=== PATIENT | male | born 1980 | race Caucasian/White ===

== ENCOUNTER 2024-04-19 17:22 | Observation (INO) | payer MEDICAID, SELFPAY ==
[2024-04-19 17:22] VITALS: BP 109/63; PULSE 64; RESP 16; TEMP 36.2; O2SAT 100; BMI 18.3
[2024-04-19 19:22] VITALS: BP 96/60; PULSE 56; RESP 10; O2SAT 96
--- NOTE | 2024-04-19 19:51 | EX.ED.DYSGE1 ---
HPI History of Present Illness Chief Complaint: Substance Abuse PFSH PFSH Allergy/AdvReac Type Severity Reaction Status Date / Time No Known Allergies Allergy Verified 04/19/24 17:24 EXAM Physical Exam Const Vital Signs: 04/19/24 17:22 Temperature 97.2 F L Temperature Source Temporal Pulse Rate 64 Respiratory Rate 16 Blood Pressure 109/63 Blood Pressure Mean 78 Pulse Ox 100 Oxygen Delivery Method Room Air Discharge Plan Triage Chief Complaint: Substance Abuse ED Provider: Anand Lopez Dx/Rx/DC Orders Primary Care Provider: NOT,DEFINED Referrals: NOT,DEFINED [Primary Care Provider] - Print Language: [place]
--- NOTE | 2024-04-19 20:07 | EKG12_ITS ---
Test Reason : DYSRHYTHMIA Blood Pressure : / mmHG Vent. Rate : 055 BPM Atrial Rate : 055 BPM P-R Int : 126 ms QRS Dur : 080 ms QT Int : 424 ms P-R-T Axes : 048 062 057 degrees QTc Int : 405 ms Sinus bradycardia Otherwise normal ECG Confirmed by TE ADHIKARI, YAHAIRA ([id number]), video editor LAURYN DAVAOLS ([id number]) on 04/20/2024 7:48:06 AM Referred By: Confirmed By:YAHAIRA TIWARI MD
--- NOTE | 2024-04-19 20:13 | EDS_ITS ---
HPI History of Present Illness Chief Complaint: Substance Abuse Narrative Narrative: Chief complaint and HPI: 44-year-old male with history of fentanyl abuse presents for opioid abuse detox. Patient states that he is a daily fentanyl abuser. He states that he snorts daily. He denies IV drug abuse or IV drug abuse in the past. He denies other illicit drug use. He states that he uses multiple times a day. Last use was this morning. He endorses anxiousness and nausea. He denies any suicidal or homicidal ideation. Denies any chest pain, shortness of breath, abdominal pain. Review of systems: See HPI Medications: As listed on the chart Allergies: As listed on the chart PFSH: Per chart Vital signs: As listed on the chart. Reviewed. Physical exam: Gen: A&O x3, NAD Head: Normocephalic, atraumatic Eyes: No sclera icterus, conjunctiva clear ENT: Moist mucous membranes Neck: Trachea midline, No JVD CV: RRR, no murmurs, no peripheral edema Resp: Lungs CTA BL, no w/r/c GI: Abd soft, non-distended, non-tender, no r/r/g Musc: Full ROM, no deformity Skin: Warm, dry Neuro: Alert, oriented, grossly intact, sensation intact Psych: Cooperative, appropriate mood and affect EKG: Interpreted by me/EM physician: EKG shows normal sinus rhythm without any acute ischemic changes. Heart rate 55. PFSH PFSH Allergy/AdvReac Type Severity Reaction Status Date / Time No Known Allergies Allergy Verified 04/19/24 17:24 Social History Smoking Status: Current every day smoker tobacco type: cigarettes EXAM Physical Exam Const Vital Signs: 04/19/24 17:22 04/19/24 19:22 04/19/24 21:00 Temperature 97.2 F L Temperature Source Temporal Pulse Rate 64 56 L 60 Respiratory Rate 16 10 L 12 Blood Pressure 109/63 96/60 109/70 Blood Pressure Mean 78 72 83 Pulse Ox 100 96 97 Oxygen Delivery Method Room Air Room Air Room Air MDM MDM MDM Narrative Medical decision making narrative: 44-year-old male with history of fentanyl abuse presents to request detox from opiate abuse. Currently endorses anxiousness and nausea as he has not used fentanyl since this morning. Zofran ordered for symptoms. EKG, basic labs, urine drug screen ordered. CBC and BMP relatively unremarkable. Ethanol level negative. Patient has yet to urinate and therefore urine drug screen has yet to be obtained. Patient will warrant admission for his detox from opiate abuse. Hospital service was consulted and patient was discussed. Excepted admission. Dr. Payne accepted. Impression: 1. Fentanyl abuse 2. Requesting detox for fentanyl abuse Lab Data Labs: Laboratory Results - last 24 hr 04/19/24 20:44 WBC 7.4 RBC 5.06 Hgb 14.2 Hct 43.2 MCV 85.4 MCH 28.1 MCHC 32.9 RDW Std Deviation 41.3 RDW Coeff of Jeovanny 13.2 Plt Count 172 MPV 10.5 Immature Gran % (Auto) 0.500 Neut % (Auto) 72.7 H Lymph % (Auto) 15.5 L [place] % (Auto) 6.2 Eos % (Auto) 4.6 Baso % (Auto) 0.5 Absolute Neuts (auto) 5.4 Absolute Lymphs (auto) 1.15 Nucleated RBC % 0 Sodium 142 Potassium 3.8 Chloride 108 H Carbon Dioxide 28.0 Anion Gap 6 BUN 19 H Creatinine 0.98 Estim Creat Clear Calc 72.69 Est GFR (MDRD) Af Amer 106 Est GFR (MDRD) Non-Af 88 BUN/Creatinine Ratio 19.4 Glucose 127 H Calcium 8.9 Ethyl Alcohol < 3.0 Discharge Plan Disposition Disposition: Acute Care Hospital [facility] Discharge Date/Time: 04/19/24 22:16
[2024-04-19 20:54] LABS: Absolute Lymphocyte Count 1.15 X10^3/uL (0.83-4.51); Absolute Neutrophil Count 5.4 X10^3/uL (2.0-7.7); Basophil# 0.04 X10^3/uL; Basophil% 0.5 % (0-1); Eosinophil# 0.34 X10^3/uL; Eosinophils% 4.6 % (0-5); Hematocrit 43.2 % (40-54); Hemoglobin 14.2 g/dL (13.0-16.5); Lymphocyte # 1.15 X10^3/ul (0.83-4.51); Lymphocyte % 15.5 % (19-41); Mean Corp Hgb Conc 32.9 g/dL (32-36); Mean Corpuscular Hgb 28.1 pg (27.0-32.0); Mean Corpuscular Volume 85.4 fL (80-94); Mean Platelet Vol. 10.5 fl (6.2-12.0); Monocyte# 0.46 X10^3/uL; Monocyte% 6.2 % (0-10); NRBC Flagged by Analyzer 0 % (0-5); Neutrophil # 5.37 X10^3/uL (2.7-7.7); Neutrophil % 72.7 % (47-70); Platelet Count 172 K/mm3 (150-450); RBC Distribution Width CV 13.2 % (11.6-14.6); RBC Distribution Width SD 41.3 fl (35.1-43.9); Red Blood Count 5.06 M/mm3 (4.6-6.2); White Blood Count 7.4 K/mm3 (4.4-11.0)
[2024-04-19 21:00] VITALS: BP 109/70; PULSE 60; RESP 12; O2SAT 97
[2024-04-19 21:08] LABS: Alcohol, Blood (Medical)-Serum < 3.0 mg/dL
[2024-04-19 21:11] LABS: Anion Gap 6 (5-15); BUN 19 mg/dL (7-18); BUN/Creat Ratio 19.4 RATIO (10-20); Calcium,Total 8.9 mg/dL (8.5-10.1); Chloride 108 mmol/L (98-107); Creatinine, Serum 0.98 mg/dL (0.70-1.30); EST Glomerular Filtration Rate 88 mL/min (>60); Est Glom Filt Rate - Afr Amer 106 mL/min (>60); Estimated Creatinine Clearance 72.69 ml/min; Glucose 127 mg/dL (74-106); Potassium 3.8 mmol/L (3.5-5.1); Sodium Level 142 mmol/L (136-145)
--- NOTE | 2024-04-19 21:36 | HP.PCM.HOS_ITS ---
HPI - General General Date of Admission: 04/19/24 Date of Service: 04/19/24 Chief Complaint: Substance Abuse with Impending Withdrawal HPI Narrative DAVI CM, is a 44 M with a past medical history of tobacco abuse and Fentanyl abuse; (via snorting) multiple times per day who presents to [facility] ER complaining of substance abuse with impending withdrawal. Mr. Cm reports his symptoms began shortly after ~5:00 AM when he last used Fentanyl with progressively worsening anxiety and nausea. He denies current IVDA, previous IVDA, EtOH abuse or other illicit drug use. He states he wants to quit so he can be able to effectively care for his 14-year-old child. There is no report of fever, chills, vomiting, abdominal pain, diarrhea or SOB. In the ER he was diagnosed with impending opiate withdrawal in the setting of chronic opiate abuse and he was then admitted to the general medical floor for ongoing care for a stay that is expected to extend beyond 2 midnights. [facility] Medical History no medical history Allergy/AdvReac Type Severity Reaction Status Date / Time No Known Allergies Allergy Verified 04/19/24 17:24 Family History unable to obtain Surgical History no surgical history Social History Smoking Status: Current every day smoker tobacco type: cigarettes ROS ROS Narrative Review of Systems: Constitutional: Patient denies fever or chills. Eyes: Patient denies changes in vision or discharge from eyes. ENT: Patient admits to vertigo but he denies sore throat, runny nose or ear pain. Resp: Patient denies SOB or cough. CV: Patient denies chest pain, palpitations or heart racing. GI: Patient admits to nausea but he denies abdominal pain, vomiting, diarrhea and constipation. : Patient denies dysuria or hematuria. MSK: Patient denies myalgias or arthralgias. Skin: Patient denies rash, abscess or jaundice. Psych: Patient admits to anxiety but he denies suicidal or homicidal ideation. Neuro: Patient denies headache, paresthesias or focal neurologic deficits. Allergy: Patient denies lip swelling, tongue swelling or urticaria. Hematology: Patient denies easy bleeding or easy bruisability. Endocrinology: Patient denies polyuria, polydipsia and polyphagia. 14 point ROS otherwise negative except for positives noted above. Vital Signs Vital Signs Vital Signs: 04/19/24 17:22 04/19/24 19:22 04/19/24 21:00 Temperature 97.2 F L Temperature Source Temporal Pulse Rate 64 56 L 60 Respiratory Rate 16 10 L 12 Blood Pressure 109/63 96/60 109/70 Blood Pressure Mean 78 72 83 Pulse Ox 100 96 97 Oxygen Delivery Method Room Air Room Air Room Air Weight Weight: 120 lb 4.8 oz Body Mass Index (BMI) 18.3 Physical Exam Const alert, oriented x3 and average body habitus Constitutional Narrative: Mild anxiety noted with patient appearing older than his stated age. General Appearance: cooperative HEENT normocephalic, head/scalp atraumatic, hearing grossly normal bilaterally and moist oral mucous membranes Eyes PERRL and EOMs intact bilaterally Neck no lymphadenopathy and supple Resp normal respiratory effort, no retractions, no use of accessory muscles and clear to auscultation bilaterally Cardio regular rate and regular rhythm GI normal to inspection, nondistended, normoactive bowel sounds, soft to palpation, non-tender and non-distended Extremity normal to inspection, full ROM and no clubbing, cyanosis or edema Skin Skin Narrative: Patient has tattoos over the entire crown of his head but he has no evidence of rash, abscess, wound or jaundice. Neuro oriented x3, CN's II-XII intact bilaterally, moves all extremities and no focal motor deficits Sensorium / Orientation: awake, alert, oriented to person, oriented to place and oriented to time Psych Mood & Affect: anxious Results Medical Records Data Attestation: I reviewed the patient's medical records Lab / Micro Data Attestation: I reviewed the patient's lab results. 04/19/24 20:44 04/19/24 20:44 Labs: Laboratory Results - last 24 hr 04/19/24 20:44: WBC 7.4, RBC 5.06, Hgb 14.2, Hct 43.2, MCV 85.4, MCH 28.1, MCHC 32.9, RDW Std Deviation 41.3, RDW Coeff of Jeovanny 13.2, Plt Count 172, MPV 10.5, Immature Gran % (Auto) 0.500, Neut % (Auto) 72.7 H, Lymph % (Auto) 15.5 L, [place] % (Auto) 6.2, Eos % (Auto) 4.6, Baso % (Auto) 0.5, Absolute Neuts (auto) 5.4, Absolute Lymphs (auto) 1.15, Nucleated RBC % 0, Sodium 142, Potassium 3.8, C hloride 108 H, Carbon Dioxide 28.0, Anion Gap 6, BUN 19 H, Creatinine 0.98, Estim Creat Clear Calc 72.69, Est GFR (MDRD) Af Amer 106, Est GFR (MDRD) Non-Af 88, BUN/Creatinine Ratio 19.4, Glucose 127 H, Calcium 8.9, Ethyl Alcohol < 3.0 Assessment & Plan Assessment/Plan (1) Opiate withdrawal: (2) Opiate abuse, continuous: (3) Tobacco abuse: (4) Anxiety, generalized: PLAN: Plan 1. Impending opiate withdrawal in the setting of chronic opiate abuse with Fentanyl - Admit to general medical floor under opiate withdrawal protocol primarily consisting of Buprenorphine taper. Opiate Cessation was strongly encouraged. Give Zofran IV prn nausea. Give Tylenol prn pain or fever. 2. Tobacco abuse complicating #1 - Tobacco Cessation was strongly encouraged with Nicotine patch offered to control cravings. 3. Generalized anxiety compounding #1 & #2 - Give IM Vistaril prn for breakthrough symptoms. 4 . DVT prophylaxis - Lovenox 40 mg sq daily. Total time: Approximately 45 minutes. Charges/Coding Visit Charges Inpatient E&M: 99281 Init Hosp L1
[2024-04-19 22:16] VITALS: BP 128/72; PULSE 88; RESP 16; TEMP 36.4; O2SAT 97
[2024-04-19 22:45] VITALS: BMI 17.8
[2024-04-19 22:48] VITALS: BP 106/73; PULSE 56; RESP 20; TEMP 36.7; O2SAT 100
[2024-04-20 05:34] VITALS: BP 114/60; PULSE 91; RESP 20; TEMP 36.8; O2SAT 100
[2024-04-20] MEDS: proMETHazine 25 MG/ML Syringe IM (05:59)
[2024-04-20 06:00] VITALS: BMI 18.4
[2024-04-20] MEDS: hydrOXYzine PAM 25 MG Capsule 50 MG PO ×3 (06:00→18:20)
[2024-04-20] MEDS: Ibuprofen 400 MG Tablet PO ×3 (06:00→21:21)
[2024-04-20] MEDS: Methocarbamol 750 MG Tablet PO ×3 (06:01→21:22)
[2024-04-20] MEDS: cloNIDine HCl 0.1 MG Tablet PO ×2 (06:01→21:22)
[2024-04-20] MEDS: Buprenorphine HCl 2 MG TAB.SUBL SL ×3 (06:47→22:40)
[2024-04-20 06:54] LABS: Absolute Lymphocyte Count 0.98 X10^3/uL (0.83-4.51); Basophil# 0.05 X10^3/uL; Basophil% 0.6 % (0-1); Eosinophil# 0.38 X10^3/uL; Eosinophils% 4.7 % (0-5); Hematocrit 47.9 % (40-54); Hemoglobin 15.4 g/dL (13.0-16.5); Lymphocyte # 0.98 X10^3/ul (0.83-4.51); Lymphocyte % 12.2 % (19-41); Mean Corp Hgb Conc 32.2 g/dL (32-36); Mean Corpuscular Hgb 27.5 pg (27.0-32.0); Mean Corpuscular Volume 85.7 fL (80-94); Mean Platelet Vol. 10.9 fl (6.2-12.0); Monocyte% 7.5 % (0-10); NRBC Flagged by Analyzer 0 % (0-5); Neutrophil # 5.98 X10^3/uL (2.7-7.7); Neutrophil % 74.8 % (47-70); Platelet Count 190 K/mm3 (150-450); RBC Distribution Width CV 13.2 % (11.6-14.6); Red Blood Count 5.59 M/mm3 (4.6-6.2)
[2024-04-20 07:19] LABS: AST(SGOT) 11 U/L (15-37); Alanine Aminotransfer ALT/SGPT 14 U/L (16-61); Albumin, Serum 3.2 g/dL (3.2-5.0); Alkaline Phosphatase 65 U/L (45-117); Anion Gap 4 (5-15); BUN 17 mg/dL (7-18); BUN/Creat Ratio 15.6 RATIO (10-20); Calcium,Total 9.2 mg/dL (8.5-10.1); Chloride 110 mmol/L (98-107); Creatinine, Serum 1.09 mg/dL (0.70-1.30); EST Glomerular Filtration Rate 77 mL/min (>60); Est Glom Filt Rate - Afr Amer 94 mL/min (>60); Estimated Creatinine Clearance 66.12 ml/min; Globulin 3.2 g/dL (2.2-4.2); Glucose 88 mg/dL (74-106); Potassium 3.8 mmol/L (3.5-5.1); Protein, Total 6.4 g/dL (6.4-8.2); Sodium Level 140 mmol/L (136-145)
[2024-04-20] MEDS: Gabapentin 300 MG Capsule PO ×2 (08:43→21:21)
[2024-04-20] MEDS: Ondansetron 8 MG Tablet PO (08:47)
[2024-04-20 11:41] VITALS: BP 136/77; PULSE 50; RESP 16; TEMP 36.8; O2SAT 98
[2024-04-20] MEDS: Dicyclomine 10 MG Capsule 20 MG PO ×2 (11:42→18:20)
[2024-04-20 15:31] VITALS: BP 116/66; PULSE 50; RESP 16; TEMP 36.4; O2SAT 97
--- NOTE | 2024-04-20 16:22 | PN.HOSP_ITS ---
Reason for Visit Reason for Visit: Diagnoses Opioid abuse, uncomplicated (04/19/24) Opioid use, unspecified with withdrawal (04/19/24) Generalized anxiety disorder (04/19/24) Tobacco use (04/19/24) Subjective Subjective Patient was seen and examined today, he was sleeping when I entered the room. Patient denies any tremor, anxiety, muscle pain, or nervousness. Objective Data Objective Data Vital Signs: Vital Signs Temp Pulse Resp BP Pulse Ox O2 Del Method 97.6 F L 50 L 16 116/66 97 Room Air 04/20/24 15:31 04/20/24 15:31 04/20/24 15:31 04/20/24 15:31 04/20/24 15:31 04/20/24 15:31 Oxygen Delivery Method Room Air Weight: 55.2 kg Body Mass Index (BMI) 18.4 Intake & Output: Intake and Output for Last 24 Hours 04/18/24 04/19/24 04/20/24 23:59 23:59 23:59 Intake Total 40 / 40 Balance 40 / 40 Medical Nutrition Assessment Dietitian: Malnutrition Criteria Met Start: 04/20/24 15:47 Freq: Status: Active Protocol: Document 04/20/24 15:47 RMA (Rec: 04/20/24 15:47 RMA [id number]) Nutrition Malnutrition Evidence of Malnutrition Exists Yes Malnutrition (severe): Chronic Evidenced By Suboptimal Energy Intake ( Severe),Weight Loss (Severe) Clinical Problem Chronic Disease or Condition Related Malnutrition Etiology severe pro-calorie malnutrition in the context of chronic disease related to drug abuse and inadequate oral intake Signs/Symptoms as evidenced by BMI 18.5, ~19 % unintentional weight loss x 12 months and PO meeting less than 50% estimated nutrition needs x 6 months Status Active Problem Recommendation Dietitian Recommendations/Changes Continue liberalized regular diet. Will d/c ensure plus HP w/ medpass and add 240mL w/ breakfast and dinner meals. Additional ONS as needed to support weight gain as PO established. Lab / Micro Data 04/20/24 06:25 04/20/24 06:25 Labs: Laboratory Results - last 24 hr 04/19/24 20:44: WBC 7.4, RBC 5.06, Hgb 14.2, Hct 43.2, MCV 85.4, MCH 28.1, MCHC 32.9, RDW Std Deviation 41.3, RDW Coeff of Jeovanny 13.2, Plt Count 172, MPV 10.5, Immature Gran % (Auto) 0.500, Neut % (Auto) 72.7 H, Lymph % (Auto) 15.5 L, [place] % (Auto) 6.2, Eos % (Auto) 4.6, Baso % (Auto) 0.5, Absolute Neuts (auto) 5.4, Absolute Lymphs (auto) 1.15, Nucleated RBC % 0, Sodium 142, Potassium 3.8, C hloride 108 H, Carbon Dioxide 28.0, Anion Gap 6, BUN 19 H, Creatinine 0.98, Estim Creat Clear Calc 72.69, Est GFR (MDRD) Af Amer 106, Est GFR (MDRD) Non-Af 88, BUN/Creatinine Ratio 19.4, Glucose 127 H, Calcium 8.9, Ethyl Alcohol < 3.0 04/20/24 06:25: WBC 8.0, RBC 5.59, Hgb 15.4, Hct 47.9, MCV 85.7, MCH 27.5, MCHC 32.2, RDW Std Deviation 41.0, RDW Coeff of Jeovanny 13.2, Plt Count 190, MPV 10.9, Immature Gran % (Auto) 0.200, Neut % (Auto) 74.8 H, Lymph % (Auto) 12.2 L, [place] % (Auto) 7.5, Eos % (Auto) 4.7, Baso % (Auto) 0.6, Absolute Neuts (auto) 6.0, Absolute Lymphs (auto) 0.98, Nucleated RBC % 0, Sodium 140, Potassium 3.8, C hloride 110 H, Carbon Dioxide 26.0, Anion Gap 4 L, BUN 17, Creatinine 1.09, Estim Creat Clear Calc 66.12, Est GFR (MDRD) Af Amer 94, Est GFR (MDRD) Non-Af 77, BUN/Creatinine Ratio 15.6, Glucose 88, Calcium 9.2, Total Bilirubin 0.50, A ST 11 L, ALT 14 L, Alkaline Phosphatase 65, Total Protein 6.4, Albumin 3.2, Globulin 3.2, Albumin/Globulin Ratio 1.0 Physical Exam Const alert, oriented x3 and no apparent distress General Appearance: cooperative, well kempt and well developed Orientation / Consciousness: awake, oriented to person, oriented to place and oriented to time HEENT normocephalic, head/scalp atraumatic and moist oral mucous membranes Eyes PERRL, EOMs intact bilaterally and conjunctivae normal Neck supple, no JVD, thyroid normal and no carotid bruits General: trachea midline Resp normal respiratory effort, no retractions, no use of accessory muscles and clear to auscultation bilaterally Auscultation: Negative for rales, rhonchi or wheezes Cardio regular rate, regular rhythm, S1 normal heart sound, S2 normal heart sound, no murmurs, no rub and no gallops GI normal to inspection, nondistended, normoactive bowel sounds, soft to palpation, non-tender and non-distended Extremity no clubbing, cyanosis or edema Skin no rashes or lesions noted General Skin Exam: no breakdown Neuro oriented x3, CN's II-XII intact bilaterally, moves all extremities, no focal motor deficits and no sensory deficits noted Sensorium / Orientation: awake and alert Speech: speech normal Psych affect normal Assessment & Plan Assessment/Plan (1) Opiate withdrawal: PLAN: Plan 1. Acute opiate withdrawal-patient will continue on his present medications, he will be seen by addiction nursing home social worker #2 chronic opiate abuse-complicates care, management, recovery, and prognosis I do not feel the patient needs subcu Lovenox daily, this has been discontinued Total clinical time spent by myself addressing the patient's medical issues, reviewing all of his data, and collaborating with patient's care team: 25 minutes Charges/Coding Visit Charges Inpatient E&M: [id number] [facility] [[email or web address]] Hosp L1
[2024-04-20 21:14] VITALS: BP 118/80; PULSE 63; RESP 16; TEMP 37.1; O2SAT 100
[2024-04-21 06:00] VITALS: BMI 18.4
[2024-04-21 06:30] VITALS: BP 120/77; PULSE 56; RESP 16; TEMP 37.1; O2SAT 99
[2024-04-21] MEDS: Dicyclomine 10 MG Capsule 20 MG PO (06:42)
[2024-04-21] MEDS: Ondansetron 8 MG Tablet PO (06:42)
[2024-04-21] MEDS: hydrOXYzine PAM 25 MG Capsule 50 MG PO (06:42)
[2024-04-21] MEDS: Methocarbamol 750 MG Tablet PO (06:43)
[2024-04-21] MEDS: Buprenorphine HCl 2 MG TAB.SUBL SL ×2 (06:48→12:15)
[2024-04-21 09:38] VITALS: BP 111/71; PULSE 55; RESP 16; TEMP 36.8; O2SAT 100
--- NOTE | 2024-04-21 12:00 | DCINST_ITS ---
Discharge Instructions Diet Discharge Diet: No restrictions Activity Discharge Activity: Return to Normal Activity Weight Bearing Status: Full weight bearing Follow Up Care Test Results: Test results from this visit will be discussed in further detail at your follow- up appointment, if applicable. Discharge Plan Admission Admit Date/Time: 04/19/24 21:39 Primary Reason for Your Visit: Opiate detox Attending Provider: Phillip Gonzalez Primary Care Provider: Care Physician,No Primary Consulting Providers: Jay Be Instructions Additional Instructions / Restrictions: Follow-up with your primary care physician regarding outpatient prescription medications for detox Discharge Orders/Prescriptions Referrals / Follow Up: Care Physician,No Primary [Primary Care Provider] - NOT,DEFINED [Non-Staff] - Disposition Disposition (needs filled in before D/C Order can be placed): Home, Self Care
[2024-04-21 12:03] VITALS: BP 130/79; PULSE 65; RESP 15; TEMP 36.7; O2SAT 97
--- NOTE | 2024-04-21 12:03 | DS.PCM_ITS ---
Providers Date of Admission: 04/19/24 Date of Discharge: 04/21/24 Primary Care Physician: No Primary Care Phys Reason For Visit: IMPENDING OPIATE WITHDRAWAL Diagnosis Discharge Diagnosis (1) Opiate withdrawal: Status: Acute Code(s): F11.93 - Opioid use, unspecified with withdrawal Plan 1. Acute opiate withdrawal-patient will continue on his present medications, he will be seen by addiction delinquency prevention social worker #2 chronic opiate abuse-complicates care, management, recovery, and prognosis I do not feel the patient needs subcu Lovenox daily, this has been discontinued Total clinical time spent by myself addressing the patient's medical issues, reviewing all of his data, and collaborating with patient's care team: 25 minutes Hospital Course Operations None Procedures None Summary of Care Provided Minutes Spent on Discharge: 30 Hospital Course: This 44-year-old white male was seen in the emergency room at [facility] requesting services for opiate detox. Patient admits to fentanyl use, he states he uses it daily and snorts it. He denied any IV drug use. He denies any alcohol usage. Labs were obtained and they are unremarkable, patient was admitted to [place] [id number] using the opiate detox order set and was seen in consultation by addiction delinquency prevention social worker. Patient wished to follow-up with his PCP as an outpatient for further detox medications. Patient had no severe withdrawal symptoms during his hospital admission. On 04/21/2024, patient was seen and examined: On examination he appeared in good health and spirits. Vital signs as documented. Skin warm and dry and without overt rashes. Neck without JVD, neck was supple, trachea midline, thyroid was normal. Lungs clear bilaterally, normal air movement was noted. Heart exam notable for regular rhythm, normal sounds and absence of murmurs, rubs or gallops. Abdomen unremarkable and without evidence of organomegaly, masses, or abdominal aortic enlargement. Bowel sounds are present, abdomen is not distended. Extremities nonedematous, no cyanosis was noted, no clubbing was noted. Neuro: Cranial nerves II through XII are grossly intact, no focal motor deficits were noted, sensation to light touch and pinprick intact, motor exam 5/5 throughout. Psych: Patient is alert and oriented x3, he does not appear anxious or depressed, he does not appear agitated. Patient appears stable for discharge home on 04/21/2024. Medical Records Data Medical Nutrition Assessment Dietitian: Malnutrition Criteria Met Start: 04/20/24 15:47 Freq: Status: Active Protocol: Document 04/20/24 15:47 RMA (Rec: 04/20/24 15:47 RMA [id number]) Nutrition Malnutrition Evidence of Malnutrition Exists Yes Malnutrition (severe): Chronic Evidenced By Suboptimal Energy Intake ( Severe),Weight Loss (Severe) Clinical Problem Chronic Disease or Condition Related Malnutrition Etiology severe pro-calorie malnutrition in the context of chronic disease related to drug abuse and inadequate oral intake Signs/Symptoms as evidenced by BMI 18.5, ~19 % unintentional weight loss x 12 months and PO meeting less than 50% estimated nutrition needs x 6 months Status Active Problem Recommendation Dietitian Recommendations/Changes Continue liberalized regular diet. Will d/c ensure plus HP w/ medpass and add 240mL w/ breakfast and dinner meals. Additional ONS as needed to support weight gain as PO established. Weight / BMI Weight Weight: 55.2 kg Body Mass Index (BMI) 18.4 ABG / Lab / Microbiology Data 04/20/24 06:25 04/20/24 06:25 D/C Instructions Discharge Diet: No restrictions Weight Bearing Status: Full weight bearing Meaningful Use Info Meaningful Use Meaningful Use Diagnoses (Choose all that apply): None applicable Ischemic Stroke Statin Dosing Therapy Reference: STATIN DOSE THERAPY REFERENCE: * Patients > 75 years receive moderate or high dose statin therapy. * Patients 75 years or YOUNGER should receive HIGH intensity statin dose unless contraindicated. You will be required to document reason for non-treatment if statin daily dose does not meet guidelines. HIGH DOSE STATIN THERAPY DAILY Atorvastatin > than or = to 40 mg Rosuvastatin > than or = to 20 mg Amlodipine + Atorvastatin > than or = to 2.5/40 mg Ezetimibe + Simvastatin 10/80 mg Simvastatin 80mg Discharge Plan Admission Admit Date/Time: 04/19/24 21:39 Primary Reason for Your Visit: Opiate detox Attending Provider: Phillip Gonzalez Primary Care Provider: Care Physician,No Primary Consulting Providers: Jay Be Instructions Additional Instructions / Restrictions: Follow-up with your primary care physician regarding outpatient prescription medications for detox Discharge Orders/Prescriptions Referrals / Follow Up: Care Physician,No Primary [Primary Care Provider] - NOT,DEFINED [Non-Staff] - Disposition Disposition (needs filled in before D/C Order can be placed): Home, Self Care Charges/Coding Visit Charges Inpatient E&M: [id number] Disch Hosp
== END 2024-04-21 12:44 | disposition home or self-care (01) ==
LOC: ED 20:21 → MS3 22:27
PROVIDERS: Admitting Provider Internal Medicine; Emergency Provider Surgery; Visit Provider Internal Medicine
DX: F11.13 Opioid abuse with withdrawal (principal); E43 Unspecified severe protein-calorie malnutrition; F17.210 Nicotine dependence, cigarettes, uncomplicated; F41.1 Generalized anxiety disorder; Z68.1 Body mass index [BMI] 19.9 or less, adult
CPT/HCPCS: G0378 ×2; 36415; 80048; 80053; 82077; 85025; 93005; 96372; 97802; 99221; 99283; H0012